=== PATIENT | female | born 1990 | race African-American/Black ===

== ENCOUNTER 2019-04-10 19:51 | Emergency (ER) | payer OTHER ==
[~2019-04-10] VITALS: Ht 167.6 cm; Wt 84.4 kg
[2019-04-10 19:54] VITALS: Ht 167.6 cm; Wt 84.4 kg
[2019-04-10 21:18] VITALS: BP 137/96
== END 2019-04-10 21:18 | disposition home or self-care (01) ==
LOC: ED 19:51
DX: J02.9 Acute pharyngitis, unspecified (principal); E11.9 Type 2 diabetes mellitus without complications
CPT/HCPCS: J1100

== ENCOUNTER 2019-06-20 10:32 | Emergency (ER) | payer OTHER ==
[~2019-06-20] VITALS: Ht 160 cm; Wt 85.7 kg
[2019-06-20 10:36] VITALS: BP 138/90; Ht 160 cm; Wt 85.7 kg
== END 2019-06-20 12:10 | disposition home or self-care (01) ==
LOC: ED 10:32
DX: H93.8X1 Other specified disorders of right ear (principal); E11.9 Type 2 diabetes mellitus without complications